=== PATIENT | male | born 1985 | race Hispanic/Latino ===

== ENCOUNTER 2018-01-22 21:19 | Emergency (ER) | payer MEDICARE, OTHER ==
[2018-01-22 21:24] VITALS: TEMP 98
--- NOTE | 2018-01-22 21:27 | ED PDOC ---
HPI: General Adult Time Seen by Provider: 01/22/18 21:25 Chief Complaint (Nursing): Trauma Chief Complaint (Provider): fall History Per: Patient, EMS Additional Complaint(s): 32-year-old male presents to emergency Department with head injury and pain to right hip status post slip and fall on wet floor in bathroom of a [facility]. Patient did not sustain LOC. He is ambulatory into ED with EMS. Patient currently lives in [facility]. PMD: none Past Medical History Reviewed: Historical Data, Nursing Documentation, Vital Signs Vital Signs: Last Vital Signs Temp 98 F 01/22/18 22:16 Pulse 78 01/22/18 22:16 Resp 18 01/22/18 22:16 BP 142/81 01/22/18 22:16 Pulse Ox 100 01/22/18 22:16 - Medical History PMH: Back Problems, Chronic Pain - Surgical History Other surgeries: Right BKA - Family History Family History: States: No Known Family Hx - Living Arrangements Living Arrangements: Other (lives in correction) - Social History Current smoker - smoking cessation education provided: No Alcohol: None Drugs: Denies - Home Medications Home Medications: Ambulatory Orders Medication Instructions Recorded Percocet 10/325 mg Tab 08/15/15 - Allergies Allergies/Adverse Reactions: Allergies Allergy/AdvReac Type Severity Reaction Status Date / Time No Known Allergies Allergy Verified 01/22/18 21:20 Review of Systems ROS Statement: Except As Marked, All Systems Reviewed And Found Negative Musculoskeletal: Positive for: Other (right hip injury) Neurological: Positive for: Other (head injury with no LOC) Physical Exam - Reviewed Nursing Documentation Reviewed: Yes Vital Signs Reviewed: Yes - Physical Exam Appears: Positive for: Well, Non-toxic, No Acute Distress Head Exam: Negative for: ATRAUMATIC (Contusion to right parietal scalp, no open wounds) Skin: Negative for: Rash Eye Exam: Positive for: Normal appearance Cardiovascular/Chest: Positive for: Regular Rate, Rhythm Respiratory: Positive for: Normal Breath Sounds Extremity: Positive for: Other (tenderness and mild swelling right lateral hip, Right BKA (prothesis noted)) Neurologic/Psych: Positive for: Alert, Oriented - ECG O2 Sat by Pulse Oximetry: 98 Pulse Ox Interpretation: Normal - Other Rad CT head X-Ray: Read By Radiologist X-Ray Interpretation: no acute finding Right hip and pelvis x-rays X-Ray: Interpreted by Me, Viewed By Me X-Ray Interpretation: no fx, no dis Medical Decision Making Medical Decision Makin32 year old with head and right hip injury Plan: CT head X-ray right hip and pelvis PO tylenol Patient is aware of CT and x-ray results. He reports improvement to pain after tylenol dose. Crutches given. 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 EMS transport was arranged for patient back to [facility]. Disposition - Clinical Impression Clinical Impression: Head injury, Contusion of hip - Patient ED Disposition Is Patient to be Admitted: No Counseled Patient/Family Regarding: Studies Performed, Diagnosis, Need For Followup - Disposition Referrals: Donn Watson MD [Staff Provider] - Disposition: Routine/Home Disposition Time: 22:55 Condition: STABLE Additional Instructions: Tylenol for pain as needed. Contact orthopedist office in the morning to arrange for follow up visit. Instructions: Closed Head Injury (DC), Hip Pain, How to Use Crutches, Going Up and Down Curbs or Stairs With a Walker or Crutches Forms: [employer] (Slovenian)
[2018-01-22 22:16] VITALS: BP 142/81; PULSE 78; RESP 18
--- NOTE | 2018-01-22 22:17 | CT ---
EXAM: CT Head Without Intravenous Contrast CLINICAL HISTORY: 32 years old, male; Injury or trauma; Fall; Initial encounter; Laceration; Without loss of consciousness; Without residual foreign body; Head, generalized; Injury date: Today; Injury details: Falling on wet floor; Patient HX: Rt bka TECHNIQUE: Axial computed tomography images of the head/brain without intravenous contrast. All CT scans at this facility use one or more dose reduction techniques, viz.: automated exposure control; ma/kV adjustment per patient size (including targeted exams where dose is matched to indication; i.e. head); or iterative reconstruction technique. Coronal and sagittal reformatted images were created and reviewed. COMPARISON: No relevant prior studies available. FINDINGS: Brain: Minimal atrophy. No intracranial hemorrhage. No mass. No edema. Ventricles: No hydrocephalus. Bones/joints: No acute fracture. Soft tissues: Few scalp calcifications. Sinuses: Scattered minimal mucosal thickening of ethmoid sinuses. Mastoid air cells: No mastoid effusion. Orbits: Unremarkable as visualized. IMPRESSION: 1. No intracranial hemorrhage. 2. Incidental/non-acute findings are described above.
[2018-01-22 22:56] VITALS: O2SAT 98
--- NOTE | 2018-01-23 07:56 | RAD ---
PROCEDURE: Right Hip Radiographs with Pelvis. HISTORY: trauma COMPARISON: None. FINDINGS: BONES: No acute fracture or destructive bony lesion identified. The pelvic ring appears intact including the pubic symphysis. JOINTS: No dislocation or subluxation right hip joint with the left hip joint unremarkable in the AP view. SOFT TISSUES: Normal. OTHER FINDINGS: None. IMPRESSION: Unremarkable radiographs of right hip and pelvis.
== END 2018-01-22 23:19 | disposition home or self-care (01) ==
LOC: H.ER 21:19
DX: S09.90XA Unspecified injury of head, initial encounter (principal); S70.01XA Contusion of right hip, initial encounter; W01.0XXA Fall on same level from slipping, tripping and stumbling without subsequent striking against object, initial encounter; Y92.89 Other specified places as the place of occurrence of the external cause; Z89.511 Acquired absence of right leg below knee; G89.29 Other chronic pain